=== PATIENT | female | born 1945 | race Caucasian/White ===

== ENCOUNTER → 2016-11-24 | Outpatient (CLI) | payer MEDICARE, OTHER ==
[~2016-11-24] MED LIST: BACITRACIN15 G1 TP; CALTRATE-600 D600 MG PO; CHONDROITIN SU250 MG PO; ESTRADIOL1 MG PO; MONTELUKAST SOD10 MG PO; OMEGA-3 ACID ETH1 GM PO; TIMOPTIC 0.5% DP5 ML OU; ZIOPTAN 0.00151 EACH OU
== END | disposition home or self-care (01) ==
LOC: RAD.S 13:00
PROC: 0GBH3ZX Excision of Right Thyroid Gland Lobe, Percutaneous Approach, Diagnostic (ICD-10-PCS; principal; 2016-11-24)
DX: D34 Benign neoplasm of thyroid gland (principal)

== ENCOUNTER → 2016-12-22 | Outpatient (CLI) | payer MEDICARE, OTHER | END | disposition home or self-care (01) | LOC: PTH.S 11:03 | DX: Z01.818 Encounter for other preprocedural examination (principal); I44.0 Atrioventricular block, first degree; Z86.79 Personal history of other diseases of the circulatory system ==

== ENCOUNTER 2016-12-28 08:38 | Observation (INO) | payer MEDICARE, OTHER ==
[~2016-12-28] VITALS: Ht 148.6 cm; Wt 75.4 kg
--- NOTE | ~2016-12-28 | OR ---
ADMIT: 12/28/2016 RM/LOC: 632 [facility] MR#: [id number] [facility]#: [id number] [address] 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 OPERATION: Right thyroid lobectomy. ANESTHESIA: General oral endotracheal. BLOOD LOSS: 30 mL. COMPLICATIONS: None. DESCRIPTION OF PROCEDURE: With the patient in the supine position, general oral endotracheal anesthesia, her eyes were taped. The neck was extended slightly. The anterior neck was prepped with ChloraPrep, allowed 3 minutes to dry. The patient was draped sterilely. An incision was made following natural skin crease low in the neck that had been marked preoperatively, carried through the skin and subcutaneous tissue and platysma muscle with skin flaps elevated subplatysmally exposing the strap muscles. Strap muscles were in the midline and the isthmus of the thyroid is identified. The right lobe was exposed by blunt dissection and retraction of the strap muscles laterally. Small vessels were treated by clamping and coagulation. The lobe was grasped with tenaculum, retracted medially, and dissected directly on the thyroid capsule. The inferior thyroid artery and vein, superior thyroid artery and vein, and middle thyroid vein were all clamped, divided, and coagulated. Smaller vessels were treated by clamping and coagulation through the procedure. Tissue consistent with the parathyroid glands, both superior and inferior, were preserved during the dissection. The recurrent laryngeal nerve was identified, its identity and function confirmed intact by NIM-2 stimulation. The gland was pedicled at Dumont's ligament which was transected and the thyroid isthmus was then transected along the left side of midline. The right lobe and isthmus were sent for frozen section analysis. The nodule was confined to the thyroid gland in the inferior aspect. Frozen section ADMIT: 12/28/2016 RM/LOC: 632 [facility] MR#: [id number] [address] [address] JULIA CULLEN [address] [place] [address] Operative/Delivery Room Report SEX: F AGE: 71 : 1945 identified a Hurthle cell neoplasm without evidence of malignant degeneration. The left lobe was examined by inspection and palpation. No abnormalities were identified. The left lobe remained intact. She tolerated the procedure well. Wound was irrigated with saline, cleaned with suctioning. A Santosh-Stoddard drain was placed, brought out at the left-sided of strap muscles and incision, and the wound was closed in layers with 3-0 chromic catgut to the midline strap muscles, inverted simple stitches to the platysmal layer, and running horizontal mattress suture to the skin. The drain was sutured to the skin with silk. A thyroid dressing applied. She tolerated this well. She emerged from general anesthesia in the operating room, extubated in the operating room and transferred to the recovery room in good condition. She experienced no stridor nor airway distress. Choco Isaacs MD/ kenneth JOB #: [id number] CC: Choco Isaacs, Attending Physician Scotty Snell, Family Physician
[2016-12-30] MEDS ORDERED: MONTELUKAST SOD10 MG PO (10:42)
[2016-12-30] MEDS ORDERED: TIMOPTIC 0.5% DP5 ML OU (10:42)
[2016-12-30] MEDS ORDERED: ESTRADIOL1 MG PO (10:42)
[2016-12-30] MEDS ORDERED: CHONDROITIN SU250 MG PO (10:43)
[2016-12-30] MEDS ORDERED: OMEGA-3 ACID ETH1 GM PO (10:43)
[2016-12-30] MEDS ORDERED: ZIOPTAN 0.00151 EACH OU (10:43)
[2016-12-30] MEDS ORDERED: CALTRATE-600 D600 MG PO (10:43)
[2016-12-30] MEDS ORDERED: BACITRACIN15 G1 TP (10:44)
--- NOTE | 2017-01-03 08:04 | HP ---
ADMIT: 12/28/2016 RM/LOC: [facility] MR#: [id number] [address] [address] JULIA CULLEN [address] [place] [address] Pre-OP History and Physical SEX: F AGE: 71 : 1945 DATE OF SERVICE: HISTORY OF PRESENT ILLNESS: Julia is 71 years old. She is admitted at this time for right thyroid lobectomy and treatment of a Hurthle cell lesion identified by fine needle aspirate biopsy. The nodule was initially discovered during a carotid artery screening exam and identified as being 2 cm, solid, and solitary. FNA was recommended and results consistent with Hurthle cell neoplasm. The significance of this as well as treatment has been discussed. I have recommended right thyroid lobectomy with frozen section. If malignancy is identified, total thyroidectomy will be carried out. We discussed the rationale for this as well as risks including risks of anesthesia, recurrent laryngeal nerve dysfunction as well as postoperative parathyroid dysfunction. She is in acceptance of these. She is in good understanding. She is admitted at this time for general anesthesia. MEDICATIONS: Prior to admission: 1. Timolol. 2. . 3. Fish oil. 4. Singulair. 5. Caltrate. 6. Estradiol. ALLERGIES: DARVON AND PENICILLIN. PAST SURGICAL HISTORY: Cataract, foot surgery, hysterectomy, cholecystectomy. REVIEW OF SYSTEMS: She does not have known lower respiratory, cardiovascular, GI, , hematologic, or neurologic disorders. SOCIAL HISTORY: She drinks caffeine in the form of tea. She does not drink alcohol. Does not use tobacco. FAMILY HISTORY: No known anesthetic complications. No coagulopathies. No known family history of thyroid disorders. ADMIT: 12/28/2016 RM/LOC: [facility] MR#: [id number] [address] [facility] [address] [place] [id number] CULLENELISAJOHNNA Kaur [address] [place] [address] Pre-OP History and Physical SEX: F AGE: 71 : 1945 PHYSICAL EXAMINATION: GENERAL: A 71-year-old, alert. HEENT: Pupils are equal. Extraocular movements intact. Ear canals, TMs, and middle ears clear. Nose, mouth, and pharynx clear and symmetrical structure and function. Larynx, good symmetry, structure, and function. NECK: No palpable masses or adenopathy. Thyroid nodule is nonpalpable. LUNGS: Clear. HEART: Rhythm regular. EXTREMITIES: Normal. 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 Recommend right thyroid lobectomy with frozen section and possible total thyroidectomy. Choco Isaacs MD/ kenneth JOB #: [id number] CC: Choco Isaasc, Attending Physician Scotty Snell, Family Physician
== END 2016-12-29 11:35 | disposition home or self-care (01) ==
LOC: WOR 08:38 → 6PED 11:45 → EDSTATUS 12:05 → SSS 12:43 → 6PED 12-29 11:35
PROVIDERS: ADMIT Otolaryngology
PROC: 0GTH0ZZ Resection of Right Thyroid Gland Lobe, Open Approach (ICD-10-PCS; principal; 2016-12-28)
DX: E04.1 Nontoxic single thyroid nodule (principal); Z79.899 Other long term (current) drug therapy; Z88.0 Allergy status to penicillin; Z88.8 Allergy status to other drugs, medicaments and biological substances; Z90.49 Acquired absence of other specified parts of digestive tract; Z90.710 Acquired absence of both cervix and uterus; Z98.49 Cataract extraction status, unspecified eye